=== PATIENT | female | born 1985 | race Caucasian/White ===

== ENCOUNTER 2016-12-27 22:47 | Inpatient (IN) | payer BC ==
[2016-12-27 23:29] LABS: Hematocrit 33 % (35-47); Hemoglobin 11.1 g/dl (12.0-16.0); Mean Corpuscular HGB Conc 34 g/dl (31-36); Mean Corpuscular Hemoglobin 30 pg (27-31); Mean Corpuscular Volume 89 fL (80-97); Mean Platelet Volume 7 um3 (7.4-10.4); Red Blood Count 3.67 10^6/ul (4.0-5.4); Red Cell Distribution Width 14 % (10.5-15); White Blood Count 12.5 10^3/ul (3.5-10.8)
[2016-12-27] MEDS ORDERED: OBEPIDURAL* 250 ML ONE (23:47)
[2016-12-28] MEDS ORDERED: Sodium Citrate/Citric Acid* 15 ML UDC PO PRN (00:30)
[2016-12-28] MEDS ORDERED: Phenylephrine IV* 40 MCG/ML 10 ML SYRINGE IV PUSH PRN (00:30)
[2016-12-28] MEDS ORDERED: Famotidine TAB* 20 MG PO PRN (00:30)
[2016-12-28] MEDS ORDERED: OBEPIDURAL* 250 ML EPIDURAL SCH (01:00)
[2016-12-28] MEDS ORDERED: ceFOXitin 2 GM IVPREMIX* 2 GM/50 ML BAG ONE (02:04)
[2016-12-28] MEDS ORDERED: Succinylcholine* 20 MG/ML 10 ML VIAL ONE (02:11)
[2016-12-28] MEDS ORDERED: Propofol* 10 MG/ML 20 ML BTL IV PUSH ONE (02:11)
[2016-12-28] MEDS ORDERED: fentaNYL* 50 MCG/ML 2 ML VIAL (100 MCG VIAL) ONE (02:18)
[2016-12-28] MEDS ORDERED: Morphine PF AMP (0.5MG/ML)* 5 MG/10 ML AMP ONE (02:22)
[2016-12-28] MEDS ORDERED: Dibucaine 1% 28.35 GM TUBE PR PRN (03:02)
[2016-12-28] MEDS ORDERED: Glycerin ADULT SUPP PR PRN (03:02)
[2016-12-28] MEDS ORDERED: Ibuprofen TAB* 600 MG PO PRN (03:02)
[2016-12-28] MEDS ORDERED: Acetaminophen TAB* 325 MG PO PRN (03:02)
[2016-12-28] MEDS ORDERED: Witch Hazel PAD* JAR TOPICAL PRN (03:02)
[2016-12-28] MEDS ORDERED: Ondansetron INJ* 2 MG/ML VIAL IV PRN ×2 (03:04→03:06)
[2016-12-28] MEDS ORDERED: Ketorolac INJ* 30 MG/ML 1 ML VIAL IV PRN (03:04)
[2016-12-28] MEDS ORDERED: fentaNYL* 50 MCG/ML 2 ML VIAL (100 MCG VIAL) IV PRN (03:04)
[2016-12-28] MEDS ORDERED: Naloxone* 0.4 MG/ML 1 ML VIAL IV PRN (03:06)
[2016-12-28] MEDS ORDERED: Oxytocin in LR* 20 UNITS/1,000 ML BAG IVPB SCH (04:00)
[2016-12-28] MEDS ORDERED: Ibuprofen TAB* 400 MG PO PRN (05:20)
[2016-12-28] MEDS: oxyCODONE/Acetamin 5/325 MG* TAB PO PRN ×5 (05:49→21:08)
[2016-12-28] MEDS: ceFOXitin 2 GM IVPREMIX* 2 GM/50 ML BAG IVPB SCH ×2 (08:36→13:27)
[2016-12-28] MEDS: Docusate CAP* 100 MG PO SCH ×3 (08:41→20:01)
[2016-12-28] MEDS: Simethicone CHEW TAB* 80 MG PO SCH ×4 (08:41→20:01)
--- NOTE | 2016-12-28 10:07 | OP ---
OPERATIVE REPORT: DATE OF OPERATION: 12/28/16 DATE OF : 89 SURGEON: Sherrill Salas MD EMERGENCY MEDICINE NURSE PRACTITIONER: Sylvie Geiger CNM ANESTHESIOLOGIST: Dr. Paredes. ANESTHESIA: General endotracheal, epidural onboard but ineffective level. PRE-OP DIAGNOSES: Intrauterine , cord prolapse. POST-OP DIAGNOSES: Intrauterine , cord prolapse, delivered. OPERATIVE PROCEDURE: Emergent primary low transverse section. ESTIMATED BLOOD LOSS: 600 cc. URINE OUTPUT: 200 cc of clear yellow urine. FLUIDS: 900 cc of crystalloid. FINDINGS: Revealed a vertex male, LOT, cord in front of the head and cord around the neck. 's were 9 at one minute and 9 at five minutes, weight was 8 pounds 2 ounces, male infant. Normal-appe aring placenta, 3-vessel cord intact, manually extracted. Normal-appearing tubes and ovaries. Uter ine cavity with normal contour, no evidence of retained membranes or placental tissue. COMPLICATIONS: None apparent. DISPOSITION: Stable to recovery room. DESCRIPTION OF PROCEDURE: The patient was placed in dorsal lithotomy position. The abdomen was prep ped as this physician was coming into the OR. With the cord prolapse, the deep variables, the patie nt underwent general endotracheal anesthesia after the abdomen had been prepped and draped and a anthony e-out was performed before general endotracheal anesthesia. The incision was made 2 fingerbreadths above the pubic symphysis as soon as adequate anesthesia was identified, this was carried down throu gh to the fascia. Fascia was extended manually with blunt dissection. The peritoneum was then enter ed bluntly and distended manually. Bladder blade was inserted. Incision was made in the lower uter ine segment with a scalpel. The incision was extended manually using blunt dissection. The head wa s delivered with cord in front of the head and nuchal cord was then reduced. Baby was crying, and a t the time of delivery, the cord was then milked and clamped. The [facility]. Appropriate cord blood was then observed for cord gases and appropriate cord blood was obtained from the placenta. Placenta was then manually extracted and noted to be intact three- vessel cord. The uterus was exteriorized, wrapped in more moist laparotomy sponge and the uterine c avity was explored and noted to be free of any membranes or placental tissue. The uterine incision was clamped with broad Allis' and the incision was then reapproximated. The first layer x2 0 Vicryl running locked, and second layer x1 imbricated 0 Vicryl. Tubes and ovaries were noted to have a no rmal appearance. The uterus was returned intraabdominally. Colic gutters were lavaged. Hemostasis was assured at the hysterotomy site. The peritoneum was then clamped with Kellys and the peritoneum was reapproximated using 3-0 Vicryl in a running fashion. The subfascial area was visualized and n oted to be hemostatic. The fascia itself was then reapproximated using 0 Vicryl x2 in a running fas hion. Subcu was lavaged. Hemostasis assured with Bovie coagulation. The skin was reapproximated us ing 4-0 Monocryl in a subcuticular fashion. Mastisol and Steri's were applied. All sponge, needle, instruments, and blade counts were correct throughout the case. Patient tolerated the procedure wel l and was then taken to recovery room after extubation in stable condition. [id number]/[facility] #: [id number]
[2016-12-28] MEDS: Ibuprofen TAB* 600 MG PO PRN (17:13)
[2016-12-29] MEDS: Ibuprofen TAB* 600 MG PO PRN ×4 (01:06→22:44)
[2016-12-29] MEDS: oxyCODONE/Acetamin 5/325 MG* TAB PO PRN ×4 (01:06→19:58)
[2016-12-29 06:40] LABS: Hematocrit 30 % (35-47); Hemoglobin 9.9 g/dl (12.0-16.0); Mean Corpuscular HGB Conc 33 g/dl (31-36); Mean Corpuscular Hemoglobin 30 pg (27-31); Mean Corpuscular Volume 91 fL (80-97); Mean Platelet Volume 7 um3 (7.4-10.4); Red Blood Count 3.32 10^6/ul (4.0-5.4); Red Cell Distribution Width 15 % (10.5-15); White Blood Count 12.6 10^3/ul (3.5-10.8)
[2016-12-29] MEDS: Ferrous Gluconate TAB* 324 MG TAB PO SCH ×2 (08:50→19:59)
[2016-12-29] MEDS: Docusate CAP* 100 MG PO SCH ×3 (08:51→19:59)
[2016-12-29] MEDS: Simethicone CHEW TAB* 80 MG PO SCH ×4 (08:54→19:58)
[2016-12-30] MEDS: oxyCODONE/Acetamin 5/325 MG* TAB PO PRN ×4 (01:38→20:06)
[2016-12-30] MEDS: Ibuprofen TAB* 600 MG PO PRN ×3 (07:43→20:06)
[2016-12-30] MEDS: Simethicone CHEW TAB* 80 MG PO SCH ×4 (07:43→20:06)
[2016-12-30] MEDS: Docusate CAP* 100 MG PO SCH ×3 (07:43→20:07)
[2016-12-30] MEDS: Ferrous Gluconate TAB* 324 MG TAB PO SCH ×3 (09:00→20:06)
[2016-12-30 21:47] VITALS: BP 115/62
[2016-12-31] MEDS: Ibuprofen TAB* 600 MG PO PRN ×2 (04:41→11:52)
[2016-12-31] MEDS: oxyCODONE/Acetamin 5/325 MG* TAB PO PRN ×2 (04:42→09:20)
[2016-12-31] MEDS: Ferrous Gluconate TAB* 324 MG TAB PO SCH (09:15)
[2016-12-31] MEDS: Docusate CAP* 100 MG PO SCH (09:17)
[2016-12-31] MEDS: Simethicone CHEW TAB* 80 MG PO SCH ×2 (09:19→11:51)
== END 2016-12-31 13:30 | disposition home or self-care (01) | DRG 540 ==
LOC: MCHOBOUT 22:47 → UNDOADMIN 22:48 → MCHOB 22:48
PROVIDERS: ADMIT Nurse Practitioner; ATTEND Obstetrics & Gynecology
PROC: 10907ZC Drainage of Amniotic Fluid, Therapeutic from Products of Conception, Via Natural or Artificial Opening (ICD-10-PCS; 2016-12-28)
PROC: 4A1H7CZ Monitoring of Products of Conception, Cardiac Rate, Via Natural or Artificial Opening (ICD-10-PCS; 2016-12-28)
PROC: 10D00Z1 Extraction of Products of Conception, Low, Open Approach (ICD-10-PCS; principal; 2016-12-28 01:52)
DX: O69.0XX0 Labor and delivery complicated by prolapse of cord, not applicable or unspecified (principal); O69.81X0 Labor and delivery complicated by cord around neck, without compression, not applicable or unspecified; Z3A.39 39 weeks gestation of pregnancy; Z37.0 Single live birth
CPT/HCPCS: 36415; 85025; 86850; 86900; 86901; A9270-GY; J0330; J0694; J1885; J2405; J2704; J3010

== ENCOUNTER 2017-08-31 13:41 | Emergency (ER) | payer BC ==
[2017-08-31 14:19] VITALS: BP 113/70
--- NOTE | 2017-08-31 14:45 | UC ---
[employer] [facility], scribed for Eleno Morales MD on 08/31/17 at 1437 . General HPI - HPI Summary HPI Summary: This patient is a 32 year old F presenting to [facility] with a chief complaint of generalized malaise since 08/27/19. Patient reports unmeasured fever , rhinorrhea, sore throat, mild cough, and body aches. Symptoms are worse at night. 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 - History of Current Complaint Chief Complaint: UCGeneralIllness Stated Complaint: FLU SYMPTOMS Time Seen by Provider: 08/31/17 14:30 Hx Obtained From: Patient Hx Last Menstrual Period: yesterday Onset/Duration: Gradual Onset, Lasting Days Onset Severity: Worse Since: - 08/27/19 Pain Location at: throat, body aches Associated Signs & Symptoms: Positive: Other - fever, rhinorrhea, sore throat mild cough and body aches - Allergy/Home Medications Allergies/Adverse Reactions: Allergies Allergy/AdvReac Type Severity Reaction Status Date / Time No Known Allergies Allergy Verified 08/31/17 14:19 Home Medications: Home Medications NK [No Home Medications Reported] 08/31/17 [History Confirmed 08/31/17] PMH/Surg Hx/FS Hx/Imm Hx Previously Healthy: Yes - Surgical History Surgical History: Yes Surgery Procedure, Year, and Place: wisdom teeth, - Family History Known Family History: Positive: Other - Patient denies relevant family history. - Social History Occupation: Employed Full-time - business administration teacher Alcohol Use: Occasionally Alcohol Amount: While not Substance Use Type: None Smoking Status (MU): Never Smoked Tobacco Have You Smoked in the Last Year: No - Immunization History Most Recent Influenza Vaccination: 2017 Most Recent Tetanus Shot: 11/14/14 Most Recent Pneumonia Vaccination: never Review of Systems Constitutional: Fever, Other - body aches ENT: Sore Throat, Nasal Discharge Respiratory: Cough All Other Systems Reviewed And Are Negative: Yes Physical Exam Triage Information Reviewed: Yes Appearance: Well-Appearing, No Pain Distress Vital Signs: Initial Vital Signs Temp 98.7 F 08/31/17 14:15 Pulse 77 08/31/17 14:15 Resp 20 08/31/17 14:15 BP 113/70 08/31/17 14:15 Pulse Ox 100 08/31/17 14:15 Eyes: Positive: Conjunctiva Clear ENT: Positive: Pharyngeal erythema, Nasal congestion, Nasal drainage, TMs normal Neck: Positive: Supple, Nontender Respiratory: Positive: Lungs clear, Normal breath sounds, No respiratory distress Cardiovascular: Positive: RRR, No Murmur Abdominal Exam: Normal Bowel Sounds: Positive: Present Musculoskeletal: Positive: ROM Intact Neurological: Positive: Alert Psychological: Positive: Age Appropriate Behavior Course/Dx - Course Course Of Treatment: 32 yr old with URI. DC home - Differential Dx - Multi-Symptom Provider Diagnoses: upper respiratory infection Discharge - Discharge Plan Condition: Good Disposition: HOME Patient Education Materials: Upper Respiratory Infection (ED) Referrals: [facility] [place] [facility] REFERRAL [Outside] No Primary Care Phys,NOPCP [Primary Care Provider] - The documentation as recorded by the [employer] [facility] [facility] accurately reflects the service I personally performed and the decisions made by Carmen cedillo Walter, MD.
== END 2017-08-31 14:50 | disposition home or self-care (01) ==
LOC: UCEAST 13:41
DX: J06.9 Acute upper respiratory infection, unspecified (principal)
CPT/HCPCS: 87502; 99211; G0463